=== PATIENT | female | born 2000 | race Caucasian/White ===

== ENCOUNTER 2021-05-09 15:32 | Emergency (ER) | payer OTHER, SELFPAY ==
[2021-05-09 15:33] VITALS: BP 131/79; PULSE 118; RESP 16; TEMP 35.8; O2SAT 99; BMI 26.3
[2021-05-09 17:22] LABS: Absolute Lymphocyte Count 1.63 X10^3/uL (0.83-4.51); Absolute Neutrophil Count 1.4 X10^3/uL (2.0-7.7); Basophil# 0.02 X10^3/uL; Basophil% 0.6 % (0-1); Eosinophil# 0.18 X10^3/uL; Hematocrit 41.3 % (37-47); Hemoglobin 12.7 g/dL (12.0-15.0); Lymphocyte # 1.63 X10^3/ul (0.83-4.51); Lymphocyte % 45.2 % (19-41); Mean Corp Hgb Conc 30.8 g/dL (32-36); Mean Corpuscular Hgb 23.9 pg (27.0-32.0); Mean Corpuscular Volume 77.6 fL (81-99); Mean Platelet Vol. 10.5 fl (6.2-12.0); Monocyte# 0.33 X10^3/uL; Monocyte% 9.1 % (0-10); NRBC Flagged by Analyzer 0 % (0-5); Neutrophil # 1.44 X10^3/uL (2.7-7.7); Neutrophil % 39.8 % (47-70); Platelet Count 269 K/mm3 (150-450); RBC Distribution Width CV 16.4 % (11.6-14.6); RBC Distribution Width SD 46.4 fl (35.1-43.9); Red Blood Count 5.32 M/mm3 (4.2-5.4); White Blood Count 3.6 K/mm3 (4.4-11.0)
[2021-05-09 17:44] LABS: Anion Gap 6 (5-15); BUN 8 mg/dL (7-18); BUN/Creat Ratio 13.1 RATIO (10-20); Calcium,Total 9.1 mg/dL (8.5-10.1); Chloride 105 mmol/L (98-107); Creatinine, Serum 0.61 mg/dL (0.55-1.02); EST Glomerular Filtration Rate 133 mL/min (>60); Est Glom Filt Rate - Afr Amer 161 mL/min (>60); Estimated Creatinine Clearance 144.25 ml/min; Glucose 106 mg/dL (74-106); Potassium 3.9 mmol/L (3.5-5.1); Sodium Level 139 mmol/L (136-145); Troponin-I HS 5 pg/mL (3.0-54.0)
--- NOTE | 2021-05-09 18:12 | RAD_ITS ---
EXAM: XR CHEST, 1 VIEW CLINICAL INDICATION: palpitations TECHNIQUE: Frontal view of the chest. This report was created using [employer] report generation technology. COMPARISON: None. FINDINGS: LUNGS AND PLEURAL SPACES: Unremarkable. No consolidation or edema. No pneumothorax. No effusion. HEART: Unremarkable. Cardiac silhouette not enlarged. MEDIASTINUM: Central airways and mediastinal contour are unremarkable. BONES/JOINTS: Unremarkable. SOFT TISSUES: Unremarkable. RAD/Chest 1 View (Portable) IMPRESSION: No radiographic evidence of acute cardiopulmonary disease. Electronically Signed: Dylan Linn MD at 18:48 EDT , Service support ,
--- NOTE | 2021-05-09 18:25 | EX.ED.DYSGE1 ---
HPI History of Present Illness Chief Complaint: Palpitations Narrative Narrative: 20-year-old female presenting with runny nose and a mild cough for 1 month. Patient denies any chest pain or shortness of breath. Patient states that she has POTS. She has been tested for Covid and strep throat. These were negative. Patient does not have a fever. Patient noted that her heart rate was elevated today and called her casing worker who told her to go to the emergency room for IV fluids. She states that she is never had to have IV fluids before with her pots disease. She has not been hypotensive. She has no nausea or vomiting. She states that she is drinking but only drinks about 2 bottles of water a day. She does state that she is experiencing palpitations. She has no dillan chest pain. [facility] Medical History (Updated 05/09/21 @ 18:13 by Kristy Rivera) Asthma Borderline personality disorder Depression POTS (postural orthostatic tachycardia syndrome) Home Medications NK 05/09/21 [History Last Taken Unknown] Allergy/AdvReac Type Severity Reaction Status Date / Time No Known Allergies Allergy Verified 05/09/21 15:35 Social History Smoking Status: Never smoker ROS ROS ED Constitutional Constitutional ED: Denies chills or fever(s) Eyes Eyes: Denies blurry vision or change in vision ENT ENT ED: Reports rhinorrhea and sore throat Cardiovascular Cardiovascular: Denies chest pain or palpitations Respiratory/Chest Respiratory/Chest: Reports cough; Denies dyspnea, dyspnea on exertion or sputum Gastrointestinal Gastrointestinal: Denies abdominal pain, diarrhea, nausea or vomiting Genitourinary Genitourinary ED: Denies dysuria or hematuria Musculoskeletal Musculoskeletal: Denies arthralgias or myalgias Integumentary Denies Abrasions or rash Neurologic Neurologic: Denies headache(s) or paresthesias EXAM Physical Exam Const Vital Signs: 05/09/21 15:33 05/09/21 18:10 05/09/21 19:05 Temperature 96.5 F L Temperature Source Temporal Pulse Rate 118 H 89 Respiratory Rate 16 16 Respiratory Effort Normal Non-Labored Respiratory Pattern Normal Blood Pressure 131/79 H 105/69 Blood Pressure Mean 96 81 Pulse Ox 99 100 Oxygen Delivery Method Room Air 05/09/21 20:06 05/09/21 20:49 Temperature Temperature Source Pulse Rate 108 H 109 H Respiratory Rate 20 H 17 Respiratory Effort Respiratory Pattern Blood Pressure 127/79 H 119/74 Blood Pressure Mean 95 Pulse Ox 100 100 Oxygen Delivery Method Room Air Positive well nourished General Appearance ED: NAD HEENT Reports moist mucous membranes Negative for trauma Eyes PERRL and EOMs intact bilaterally Resp normal respiratory effort and clear to auscultation bilaterally Cardio regular rhythm Rate: tachycardic Neuro oriented x3 and CN's II-XII intact bilaterally Sensorium / Orientation: alert Psych mental status grossly normal Skin no rashes or lesions noted MDM MDM MDM Narrative Medical decision making narrative: Patient sent to the ED for palpitations and rapid heart rate. She states she was told she needs IV fluids. 1 L of IV fluids was ordered. Patient is not hypotensive and is not having orthostatic symptoms that she is ambulating briskly throughout the hallway. CBC and BMP are unremarkable. Troponin is 5. Patient does not have any chest pain. She was given a liter of IV fluids and feels improved. Her CBC shows that she is leukopenic and lymphopenic. She states her symptoms are not ongoing for a month. I did offer to test her for Covid and she declines. She states she is already had a test which was negative. She is not having any chest pain. Chest x-ray my interpretation shows no acute cardiopulmonary process and the radiologist does agree. I was waiting for an EKG to be performed and I did substance abuse counselor the patient that I was waiting for this. I did however discharge paperwork ready on my desk. Prior to obtaining an EKG her nurse came and obtained the discharge instructions prior to the EKG being obtained. For this reason it was not done. Impression: 1. Palpitations Lab Data Labs: Laboratory Results - last 24 hr 05/09/21 05/09/21 17:02 17:02 WBC 3.6 L RBC 5.32 Hgb 12.7 Hct 41.3 MCV 77.6 L MCH 23.9 L MCHC 30.8 L RDW Std Deviation 46.4 H RDW Coeff of Lalo 16.4 H Plt Count 269 MPV 10.5 Immature Gran % (Auto) 0.300 Neut % (Auto) 39.8 L Lymph % (Auto) 45.2 [place] % (Auto) 9.1 Eos % (Auto) 5.0 Baso % (Auto) 0.6 Absolute Neuts (auto) 1.4 L Absolute Lymphs (auto) 1.63 Nucleated RBC % 0 Sodium 139 Potassium 3.9 Chloride 105 Carbon Dioxide 28.0 Anion Gap 6 BUN 8 Creatinine 0.61 Estim Creat Clear Calc 144.25 Est GFR (MDRD) Af Amer 161 Est GFR (MDRD) Non-Af 133 BUN/Creatinine Ratio 13.1 Glucose 106 Calcium 9.1 Troponin I High Sens 5 Radiography Diagnostic Testing: Radiology Impression Chest X-Ray 05/09/21 18:12 IMPRESSION: No radiographic evidence of acute cardiopulmonary disease. Electronically Signed: Dylan Linn MD at 18:48 EDT , Service support , Discharge Plan Triage Chief Complaint: Palpitations ED Provider: Devin Montes Dx/Rx/DC Orders Instructions: ED Palpitations Prescriptions: No Action NK RF: 0 Referrals: [facility] [Other] Disposition Disposition: Home, Self Care Discharge Date/Time: 05/09/21 21:21
[2021-05-09 19:05] VITALS: BP 105/69; PULSE 89; RESP 16; O2SAT 100
[2021-05-09] MEDS: 0.9% Normal Saline 1,000 ML 999 ML IV (19:11)
[2021-05-09 20:06] VITALS: BP 127/79; PULSE 108; RESP 20; O2SAT 100
[2021-05-09 20:49] VITALS: BP 119/74; PULSE 109; RESP 17; O2SAT 100
== END 2021-05-09 21:21 | disposition home or self-care (01) ==
PROVIDERS: Emergency Provider Student in an Organized Health Care Education/Training Program
DX: R00.2 Palpitations (principal); R05 Cough; J45.909 Unspecified asthma, uncomplicated; F60.3 Borderline personality disorder; F32.9 Major depressive disorder, single episode, unspecified
CPT/HCPCS: 71045; 80048; 84484; 85025; 93005; 96360; 99283; J7030; A4216

== ENCOUNTER 2021-06-23 19:57 | Emergency (ER) | payer OTHER, SELFPAY ==
[2021-06-23 19:58] VITALS: BP 121/75; PULSE 99; RESP 16; TEMP 37.6; O2SAT 99; BMI 27.2
--- NOTE | 2021-06-23 20:27 | EKG12_ITS ---
Test Reason : PALPTATIONS Blood Pressure : / mmHG Vent. Rate : 081 BPM Atrial Rate : 081 BPM P-R Int : 128 ms QRS Dur : 088 ms QT Int : 364 ms P-R-T Axes : 061 087 063 degrees QTc Int : 422 ms Normal sinus rhythm Normal ECG Confirmed by MAXI NAJERA, TED ([id number]), associate editor ENRRIQUE TROY ([id number]) on 06/27/2021 10:32:44 AM Referred By: MOHAN Confirmed By:TED GERMAN MD
[2021-06-23 20:42] LABS: Absolute Lymphocyte Count 1.93 X10^3/uL (0.83-4.51); Absolute Neutrophil Count 3.1 X10^3/uL (2.0-7.7); Basophil# 0.02 X10^3/uL; Basophil% 0.4 % (0-1); Eosinophil# 0.06 X10^3/uL; Eosinophils% 1.1 % (0-5); Hemoglobin 11.2 g/dL (12.0-15.0); Lymphocyte # 1.93 X10^3/ul (0.83-4.51); Lymphocyte % 34.8 % (19-41); Mean Corp Hgb Conc 31.1 g/dL (32-36); Mean Corpuscular Hgb 24.6 pg (27.0-32.0); Mean Corpuscular Volume 79.1 fL (81-99); Mean Platelet Vol. 10.3 fl (6.2-12.0); Monocyte# 0.43 X10^3/uL; Monocyte% 7.7 % (0-10); NRBC Flagged by Analyzer 0 % (0-5); Neutrophil % 55.8 % (47-70); Platelet Count 322 K/mm3 (150-450); RBC Distribution Width CV 15.6 % (11.6-14.6); RBC Distribution Width SD 44.4 fl (35.1-43.9); Red Blood Count 4.55 M/mm3 (4.2-5.4); White Blood Count 5.6 K/mm3 (4.4-11.0)
[2021-06-23 21:05] LABS: Anion Gap 7 (5-15); BUN 8 mg/dL (7-18); BUN/Creat Ratio 10.4 RATIO (10-20); Calcium,Total 9.2 mg/dL (8.5-10.1); Chloride 107 mmol/L (98-107); Creatinine, Serum 0.77 mg/dL (0.55-1.02); EST Glomerular Filtration Rate 102 mL/min (>60); Est Glom Filt Rate - Afr Amer 123 mL/min (>60); Estimated Creatinine Clearance 118.54 ml/min; Glucose 104 mg/dL (74-106); Potassium 3.4 mmol/L (3.5-5.1); Sodium Level 140 mmol/L (136-145); Thyroid Stim Hormone (TSH) 2.37 uIU/mL (0.358-3.74); Troponin-I HS 4 pg/mL (3.0-54.0)
--- NOTE | 2021-06-23 21:27 | ED.VIS.CHEST ---
HPI History of Present Illness Chief Complaint: Palpitations Narrative Narrative: Patient presenting for evaluation secondary to palpitations. Patient reports that she has an underlying history of pots syndrome, she is on 25 mg of long-acting metoprolol for this. No changes in her medications recently, no missed doses. Patient states that over the course of the last 3 days she has been dealing with palpitations specifically with exertion. 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 She states that she is not been sick recently, no fevers chills night sweats unintended weight loss changes in appetite heat or cold intolerance. She denies any recent illness associated with it. She reports that she called her emerging technologies director who recommended that she get checked out. Patient denies any recent travel, surgery, hemoptysis, exogenous hormone use, history of DVT or PE. Review of systems otherwise negative. [facility] Medical History Asthma Borderline personality disorder Depression POTS (postural orthostatic tachycardia syndrome) Home Medications NK 05/09/21 [History Last Taken Unknown] Allergy/AdvReac Type Severity Reaction Status Date / Time No Known Allergies Allergy Verified 05/09/21 15:35 Social History Smoking Status: Never smoker ROS ROS ED Constitutional Constitutional ED: Denies chills or fever(s) ENT ENT ED: Denies rhinorrhea Cardiovascular Cardiovascular: Reports as per HPI and palpitations Respiratory/Chest Respiratory/Chest: Denies cough or dyspnea Gastrointestinal Gastrointestinal: Denies abdominal pain, diarrhea, nausea or vomiting Genitourinary Genitourinary ED: Denies dysuria or hematuria Musculoskeletal Musculoskeletal: Denies back pain Integumentary Denies rash Neurologic Neurologic: Denies paresthesias or weakness Psychiatric Psychiatric: Denies depression Endocrine Endocrinology: Denies fatigue Allergic/Immunologic Allergic/Immunologic ED: Denies urticaria EXAM Physical Exam Const Vital Signs: 06/23/21 19:58 06/23/21 20:32 Temperature 99.6 F H Temperature Source Temporal Pulse Rate 99 Respiratory Rate 16 Blood Pressure 121/75 H Blood Pressure Mean 90 Pulse Ox 99 Oxygen Delivery Method Room Air Room Air Positive well nourished and well developed General Appearance ED: well developed and NAD HEENT Reports moist mucous membranes Negative for trauma or tenderness Eyes EOMs intact bilaterally Neck no lymphadenopathy, supple and no JVD Chest Wall inspection of chest normal Resp normal respiratory effort and clear to auscultation bilaterally Cardio regular rate, regular rhythm, no murmurs and peripheral pulses 2+ throughout GI normal to inspection, nondistended, normoactive bowel sounds, non-tender and no masses Palpation: soft Back/Spine normal to inspection Extremity normal to inspection General Extremety ED: Negative for tenderness Neuro oriented x3 and no sensory deficits noted Sensorium / Orientation: alert Motor Exam: strength 5/5 throughout Psych mental status grossly normal Skin no rashes or lesions noted MDM MDM MDM Narrative Medical decision making narrative: Patient presenting secondary to complaints for palpitations. Patient's measured heart rate in the emergency departments was never above 80 or 90, she is capital PE RC negative there is no indication for work-up for pulmonary embolism. EKG was found to be unremarkable patient had no telemetry events while in the emergency department. CBC, chemistry, troponin, and TSH were obtained which were all basically unremarkable except for mild hypokalemia at 3.4, mild anemia with hemoglobin at 11.2. Patient at this point likely is having exacerbation of her POTS, she was recommended to follow-up with her emerging technologies director and should she have continued issues potentially she would benefit from increasing her dose from 25 mg of metoprolol to 50 mg of metoprolol. Patient was given reassurance, she was discharged in stable condition. Lab Data Labs: Laboratory Results - last 24 hr 06/23/21 06/23/21 20:12 20:12 WBC 5.6 RBC 4.55 Hgb 11.2 L Hct 36.0 L MCV 79.1 L MCH 24.6 L MCHC 31.1 L RDW Std Deviation 44.4 H RDW Coeff of Lalo 15.6 H Plt Count 322 MPV 10.3 Immature Gran % (Auto) 0.200 Neut % (Auto) 55.8 Lymph % (Auto) 34.8 [place] % (Auto) 7.7 Eos % (Auto) 1.1 Baso % (Auto) 0.4 Absolute Neuts (auto) 3.1 Absolute Lymphs (auto) 1.93 Nucleated RBC % 0 Sodium 140 Potassium 3.4 L Chloride 107 Carbon Dioxide 26.0 Anion Gap 7 BUN 8 Creatinine 0.77 Estim Creat Clear Calc 118.54 Est GFR (MDRD) Af Amer 123 Est GFR (MDRD) Non-Af 102 BUN/Creatinine Ratio 10.4 Glucose 104 Calcium 9.2 Troponin I High Sens 4 TSH 2.37 Discharge Plan Triage Chief Complaint: Palpitations ED Provider: Calderon White Dx/Rx/DC Orders Clinical Impression: POTS (postural orthostatic tachycardia syndrome) Prescriptions: No Action NK RF: 0 Primary Care Provider: [facility] ,Out of Referrals: [facility] Doctor,Out of [Primary Care Provider] - Activity Restrictions/Additional Instructions: Follow-up with your emerging technologies director Disposition Disposition: Home, Self Care
[2021-06-23 21:45] VITALS: BP 103/66; PULSE 79; RESP 16; O2SAT 100
== END 2021-06-23 21:45 | disposition home or self-care (01) ==
PROVIDERS: Emergency Provider Emergency Medicine
DX: R00.2 Palpitations (principal); J45.909 Unspecified asthma, uncomplicated; F32.A Depression, unspecified; F60.3 Borderline personality disorder
CPT/HCPCS: 80048; 84443; 84484; 85025; 93005; 99285